=== PATIENT | male | born 1970 | race Caucasian/White ===

== ENCOUNTER → 2021-02-15 16:31 | Outpatient (BNVA) | payer OTHER, SELFPAY | PROVIDERS: Family Provider Family Medicine; Visit Provider Surgery | DX: Z20.822 Contact with and (suspected) exposure to COVID-19 (principal); K40.90 Unilateral inguinal hernia, without obstruction or gangrene, not specified as recurrent | CPT/HCPCS: 87635 ==

== ENCOUNTER 2021-02-21 11:12 | Day surgery (SDC) | payer OTHER, SELFPAY ==
[2021-02-21] VITALS (12 sets, daily range): BP systolic 125–165; BP diastolic 86–108; PULSE 63–80; RESP 12–22; TEMP 36.1–36.6; O2SAT 97–100; BMI 25.7
[2021-02-21] MEDS: sodium chloride 0.9% 1,000 ML 30 ML IV (12:22)
[2021-02-21] MEDS: acetaminophen 1,000 MG/100 ML PIGGYBACK 400 MG IV (12:22)
--- NOTE | 2021-02-21 12:42 | ANES.PREANE2 ---
Pre-Anesthetic Assessment Pre-Anesthetic Assessment: Height/Weight: Height 1.63 m Weight 68.039 kg Temp Pulse Resp BP Pulse Ox 97.6 F 80 16 149/96 100 02/21/21 12:04 02/21/21 12:04 02/21/21 12:04 02/21/21 12:04 02/21/21 12:04 Preop Diagnosis: Right inguinal Hernia Proposed Procedure: Operation Date: 02/21/21 12:50 Proposed Procedures p Laparoscopic Inguinal Hernia Repair w/Mesh [place] 68505 K40.90(Right) - Hakeem Arteaga MD Was Beta Jennifer taken within 24 hours: N/A Was Clonidine taken within 24 hours: N/A Last intake: Intake Last Liquid Date 02/20/21 Last Liquid Time 07:00 Last Solid Date 02/20/21 Last Solid Time 19:00 Social: Social History: No alcohol and No tobacco Exam: Pre-Anes Outpt Exam: alert, oriented x 3, clear to auscultation bilaterally and regular rate & rhythm Airway: Submandibular: WNL Cervical ROM: WNL MP: 2 Dentition: Full History/ROS: No significant history except as noted Anesthetic Plan: ASA status: 1 Anesthesia: General Risk of > 500 ml blood loss (7ml/kg in children): No Meds/Allergies Current Medications: Current Medications Generic Name Dose Route Start Last Admin Trade Name Freq PRN Reason Stop Dose Admin Sodium Chloride 1,000 mls @ 30 ml s/hr 02/21/21 11:30 02/21/21 12:22 Sodium Chloride 0.9% IV 02/22/21 11:29 30 mls/hr .Q24H JOE Administration PFSH Anesthesia PFSH: Social History Smoking and tobacco status: current some day smoker (1 pack a week) Alcohol intake: current Alcohol intake frequency: 0-2 Drinks per Day Alcohol type: beer Data Anesthesia Cardiac Studies: No Data to Display
--- NOTE | 2021-02-21 13:02 | W.PM.OPSUD ---
Surgery/Procedure H&P Update DATE OF PROCEDURE: February 21, 2021 DATE H&P PERFORMED: 01/31/21 H&P UPDATE INFORMATION: I have reviewed H&P completed within last 30 days, I have examined patient prior to procedure and No changes to prior documentation PREOP DIAGNOSIS: Right inguinal Hernia PRIMARY INDICATION FOR PROCEDURE: The same PLANNED PROCEDURE: Operation Date: 02/21/21 12:50 Proposed Procedures p Laparoscopic Inguinal Hernia Repair w/Mesh poss open 88765 K40.90(Right) - Hakeem Arteaga MD
[2021-02-21] MEDS: lidocaine 2% INJ 20 mL INJECTION (14:09)
--- NOTE | 2021-02-21 14:57 | PM.OP ---
Operative Report Date of procedure: February 21, 2021 Pre-op Diagnosis: Right inguinal Hernia Post-op diagnosis: same Post-op Findings: Lipoma of the cord and direct inguinal hernia Procedure Done: Laparoscopic right inguinal hernia repair with mesh placement Laparoscopic excision of lipoma of the cord Implants: 3D medium size polypropylene mesh Specimens removed/disposition: Lipoma of the cord Surgeon: Hakeem Arteaga Motor Setter: Surgical kenneth Sanderson/joined by Luma at shift change Circulating nurse Barbara Gaffney Anesthesia: General ([employer] E[employer]IENCY ENGINEER Neel) Estimated blood loss (mL): 10 Complications: No immediate complication Condition: stable Disposition: same day Brief History: Symptomatic right inguinal hernia, full H&P informed consent per chart. Procedure: Procedure: Transabdominal preperitoneal ([facility]) approach. Patient was identified in the holding area ,patient was taken to the operating room where he was placed in supine position, with both arms were tucked, antibiotic was given with induction, endotracheal tube was placed per anesthesia, Montoya catheter was inserted by the circulating nurse and revealed clear urine, prep and drape of the abdomen was done under the usual sterile technique. Time-out was done verifying the patient's name/date of /planned procedure destination after the procedure, all were in agreement. SCDs confirmed to be functioning, preoperative antibiotics administered per protocol, and beta miguelangel protocol was confirmed. A vertical skin incision of 1.2 cm was made with 11 blade knife through the supra umbilicus , incision was carried down to the subcutaneous tissue and deepened to identify the anterior fascia, two stay sutures were applied to the fascia, and safe entrance to the abdominal cavity was achieved, a Mckeon trocar technique safe entry to the abdominal cavity was achieved verified by using 10 mm zero degree laparoscopy, switched to a 30 degrees scope,low flow followed by a higher flow of CO2 gas up to 15 mmHg. There was no evidence of injury to intra-abdominal structures from the port entry, attention was deviated to both groins, there was a direct hernia defect with herniation of peritoneum and preperitoneal fat was noted on the right side, two 5 mm ports were placed on the right lateral aspect of the abdomen, under direct visualization, anesthesia 2% lidocaine local was injected at all trocar sites prior to incisions. There was no evidence of recurrent hernia on the left side yet noticed that there was puckering of the mesh without evidence of migration. The peritoneum above the level of the iliopubic tract was incised to the left of the midline and dissection was performed to create a preperitoneal space medial to lateral aspect up to anterior superior iliac spine on the right side, noticed that there were extensive scar tissues and adhesions.Dissection was continued onto the medial aspect and the right spermatic was identified, there was evidence of small direct inguinal hernia .the sac was dissected and the lipoma of the cord was dissected as. As it applied medial to the right inferior epigastric vessels/ dissection was performed to clear the space lateral to the spermatic cord and dorsomedial to it, the hernia sac was reduced and retracted far back, so there was evidence of a larger direct inguinal hernia that was dissected. Suction irrigation was warranted as there was some oozing that was ultimately controlled by the harmonic scalpel that was also used for dissection Then a medium size 3-D mesh was rolled and placed into the abdominal cavity through the Mckeon port, after the mesh was introduced it was positioned to lie in the myopectineal orifice and the mesh was unrolled and this covered the entire my myope pectineal orifice. On the lateral aspect of the mesh extended up to the anterior superior iliac spine on the medial aspect the mesh crossed the midline onto the left side, then using absorbable tacks, placed above the iliopubic tract onto the rectus abdominis muscle on the medial aspect and also to the lateral abdominal wall superomedial to the sacroiliac spine, then the mesh was also anchored to the pubis and the Basil's ligament inferiorly. The peritoneal leaflets were then brought together to cover the mesh and isolated from the other viscera, extra tacks were used to secure the peritoneum in good position. Final look demonstrated good hemostasis and the mesh in good position and no evidence of intra-abdominal injuries or bleeding. A total of 20 mL Exparel 40 ml Normal saline 20 ml bupivacaine 0.25% were injected at the remaining of the tacks site and trocar sites as well Final look demonstrated good hemostasis.Then the fascia on the supra umbilical fascial defect was closed using #1 PDS sutures under direct visualization using fascial closure device Yvan Choi.All ports were removed,then the abdomen was desufflated. All skin incisions were closed with 3-0 Vicryl followed by 4-0 Monocryl subcuticular suture and Dermabond was applied. The patient tolerated the procedure well, Montoya catheter was taken out and Scrotal support was placed,got extubated and was taken to the recovery area in stable condition All counts of instruments, needles and sponges were completed I was present for the whole entire procedure
--- NOTE | 2021-02-21 15:28 | PM.PACU ---
Documented by User: Neel Raphael CRNA 02/21/21 15:28 PACU note PACU note: VSS, Good respiratory effort, report to TELECOM ENGINEER Post-Anesthesia Exam: awake
[2021-02-21] MEDS: fentaNYL 50 mcg/mL INJ 2mL IVP (15:43)
--- NOTE | 2021-02-21 17:10 | ANE.PACU2 ---
Inpatient post-anesthesia follow up: Airway intact: Yes Vital signs: Temperature 97.8 F Pulse Rate 68 Respiratory Rate 14 Blood Pressure 130/86 Pulse Oximetry 99 Oxygen Delivery Me thod Room Air Oxygen Flow Rate 6 Fraction of Inspir ed Oxygen Hydration adequate: Yes Nausea and vomiting: No Pain level: 2 Mental status: Baseline
[2021-02-21] MEDS: HYDROcodone-acetaminophen 5-325 mg Tablet 1 TAB PO (17:15)
== END 2021-02-21 17:30 | disposition home or self-care (01) ==
PROVIDERS: Family Provider Family Medicine; Visit Provider Surgery
PROC: (CPT 49650; principal; 2021-02-21 12:40)
DX: K40.90 Unilateral inguinal hernia, without obstruction or gangrene, not specified as recurrent (principal); D17.6 Benign lipomatous neoplasm of spermatic cord; F17.210 Nicotine dependence, cigarettes, uncomplicated
CPT/HCPCS: 49650; 88304; 96365; C9290; J0690; J1100; J2270; J2405; J2704; J3010; J3490; J7030

== ENCOUNTER → 2021-10-14 14:41 | Outpatient (BNVA) | payer OTHER, SELFPAY | PROVIDERS: Family Provider Family Medicine; Visit Provider Surgery | DX: Z11.52 Encounter for screening for COVID-19 (principal) | CPT/HCPCS: 87635 ==

== ENCOUNTER 2021-12-09 06:37 | Day surgery (SDC) | payer OTHER, SELFPAY ==
[2021-12-07 14:19] VITALS: BMI 25.7
--- NOTE | 2021-12-09 06:45 | W.PM.OPSFHP ---
Same Day Surgery H&P Indication for Procedure/HPI DATE OF PROCEDURE: December 09, 2021 CHIEF COMPLAINT/INDICATIONFOR SURGICAL PROCEDURE: Screening Colonoscopy PREOP DIAGNOSIS: Screening colonoscopy PLANNED PROCEDURE: Operation Date: 12/09/21 07:30 Proposed Procedures p Colonoscopy 16494/z12.11(Not Applicable) - Hakeem Arteaga MD Patient is 10/24/2023 This is a pleasant 51 years old gentleman undergone uneventful laparoscopic right inguinal hernia repair with mesh placement and excision of lipoma of the cord back in February 21, 2021 patient was encouraged before to get a screening colonoscopy at some point and he is due for 1.? He denies any bleeding per rectum and he is mending well with regard to his inguinal hernia repair and denies any other complaints.? Patient never had a screening colonoscopy before. 12/09/2021 Patient comes today for scheduled colonoscopy ROS All systems have been reviewed negative except as per the above or per problem list Medications/Allergies* Home Medications Medication Instructions Recorded Confirmed Type acetaminophen 325 mg capsule 325 mg PO QID PRN 01/31/21 12/07/21 History (Tylenol) Allergies/Adverse Reactions Allergy/AdvReac Type Severity Reaction Status Date / Time No Known Allergies Allergy Verified 12/09/21 06:46 Pertinent History/Comorbid Conditions* Medical History (Updated 10/24/21 @ 16:24 by Hakeem Arteaga MD) Right groin hernia Social History Smoking and tobacco status: current some day smoker (1 pack a week) Alcohol intake: current Alcohol intake frequency: 0-2 Drinks per Day Alcohol type: beer Pertinent Exam Findings alert, oriented x 3, regular rate & rhythm and procedure specific exam findings (Abdominal examination nontender nondistended soft) Recommendations Surgery/Procedure today ( Screening colonoscopy) Coding Level of Care Code Acute Senior Design Engineering Specialist for Wilbur Leonard
[2021-12-09 06:49] VITALS: BP 166/107; PULSE 95; RESP 18; TEMP 36.1; O2SAT 99
--- NOTE | 2021-12-09 06:57 | P.ANESASSM_ITS ---
Pre-Anesthetic Assessment Height/Weight: Height 1.63 m Weight 68.039 kg Preop Diagnosis: Screening colonoscopy Operation Date: 12/09/21 07:30 Proposed Procedures p Colonoscopy 82781/z12.11(Not Applicable) - Hakeem Arteaga MD Was Beta Jennifer taken within 24 hours: N/A Was Clonidine taken within 24 hours: N/A Social Alcohol and Tobacco Exam alert, oriented x 3, clear to auscultation bilaterally and regular rate & rhythm Airway Submandibular: within normal limits Cervical ROM: within normal limits Mallampati: Class II Dentition: full History/ROS No significant history except as noted and No significant complaints Pulmonary None reported CV/HEM Hypertension None reported Hepatic None reported GI None reported Metabolic None reported Musc/skel None reported Neuropsych None reported Anesthetic Plan ASA status: 2 Anesthesia: Anesthesia Evaluation and MAC Risk of > 500 ml blood loss (7ml/kg in children): No Medications/Allergies Home Medications Medication Instructions Recorded Confirmed Last Taken Type acetaminophen 325 mg capsule 325 mg PO QID PRN 01/31/21 12/09/21 12/04/21 History (Tylenol) Allergies Allergy/AdvReac Type Severity Reaction Status Date / Time No Known Allergies Allergy Verified 12/09/21 06:46 [facility] Anesthesia Medical History Right groin hernia Social History Smoking and tobacco status: current some day smoker (1 pack a week) Alcohol intake: current Alcohol intake frequency: 0-2 Drinks per Day Alcohol type: beer Data Anesthesia Cardiac Studies: No Data to Display
[2021-12-09] MEDS: sodium chloride 0.9% 1,000 ML 30 ML IV (07:06)
[2021-12-09 08:19] VITALS: BP 152/98; PULSE 88; RESP 18; TEMP 36.1; O2SAT 100
[2021-12-09 08:29] VITALS: BP 163/113; PULSE 85; RESP 18; TEMP 36.1; O2SAT 100
[2021-12-09 08:40] VITALS: O2SAT 100
--- NOTE | 2021-12-09 15:55 | ANE.PACU2 ---
Inpatient post-anesthesia follow up: Airway intact: Yes Vital signs: Temperature 97.0 F Pulse Rate 85 Respiratory Rate 18 Blood Pressure 163/113 Pulse Oximetry 100 Oxygen Delivery Me thod Room Air Oxygen Flow Rate 3 Fraction of Inspir ed Oxygen Hydration adequate: Yes Nausea and vomiting: No Pain level: 1 Mental status: Baseline
== END 2021-12-09 08:56 | disposition home or self-care (01) ==
PROVIDERS: Family Provider Family Medicine; Visit Provider Surgery
PROC: 0DJD8ZZ Inspection of Lower Intestinal Tract, Via Natural or Artificial Opening Endoscopic (ICD-10-PCS; CPT 45378; principal; 2021-12-09 07:30)
DX: Z12.11 Encounter for screening for malignant neoplasm of colon (principal); D12.5 Benign neoplasm of sigmoid colon; F17.210 Nicotine dependence, cigarettes, uncomplicated; I10 Essential (primary) hypertension
CPT/HCPCS: 45385; 88305; J2704; J7030